=== PATIENT | male | born 1955 | race Caucasian/White ===

== ENCOUNTER 2020-07-14 15:21 | Inpatient (IN) | payer MEDICARE, BC ==
[~2020-07-14] VITALS: Ht 170.2 cm; Wt 108.4 kg
[~2020-07-14 15:21] MED LIST: ADULT LOW DOSE81 MG PO; AMITIZA24 MCG PO; ASPIR 8181 MG PO; AUGMENTIN 500-500 MG PO; AUGMENTIN 875-1 EACH PO; BETADINE946 ML TOP; CALCIUM 600 +1 EA10 PO; CALCIUM ACETAT667 M1 PO; CARAFATE1 GM PO; CLOPIDOGREL75 MG PO; COREG 3.125M3.125 MG PO; DORZOLAMIDE-TIM10 ML EYELF; ELAVIL 50 MG TA50 MG PO; FERROUS SULFAT325 MG PO; HYDROCODON-ACE1 EAC2 PO; LEVEMIR FL100 UNIT/1 SQ; LEVEMIR100 UNIT/1 SQ; LIPITOR TAB 2020 MG PO; LORTAB 7.5-3251 EACH PO; LYRICA150 MG PO; LYRICA75 MG PO; MAALOX PLUS 3030 ML PO; MAPAP325 MG PO; NORVASC 5 MG TAB5 MG PO; NOVOLOG 10100 UNITS/ INJ; NOVOLOG FL100 UNIT/1 SQ; OMNICEF 300 MG300 MG PO; PANTOPRAZOLE SO40 MG PO; PHOSLO667 MG PO; PREDNISONE 10 M10 MG PO; PROBIOTIC1 EAC3 PO; PROZAC20 MG PO; REGLAN5 MG PO; SANTYL OINT 3030 GM TP; TUMS DUAL ACTI1 EACH PO; VITAMIN D50000 UNIT PO; ZOFRAN ODT 4 MG4 MG PO; ZOLOFT50 MG PO
[2020-07-14 16:37] LABS: HEMOGLOBIN 8.5 gm/dl (14.0-17.5); RED BLOOD COUNT 2.76 M/UL (4.20-5.50); WHITE BLOOD COUNT 9.5 K/UL (4.5-11.0)
[2020-07-14] MEDS ORDERED: LYRICA 75 MG CA75 MG PO (18:28)
[2020-07-15 03:50] LABS: HEMOGLOBIN 8.4 gm/dl (14.0-17.5); RED BLOOD COUNT 2.75 M/UL (4.20-5.50); WHITE BLOOD COUNT 10.4 K/UL (4.5-11.0)
[2020-07-16 04:12] LABS: HEMOGLOBIN 8.1 gm/dl (14.0-17.5); RED BLOOD COUNT 2.66 M/UL (4.20-5.50); WHITE BLOOD COUNT 9.3 K/UL (4.5-11.0)
[2020-07-16 10:13] LABS: HBSAG SCREEN Negative (Negative); HEP A AB, IGM Negative (Negative); HEP B CORE AB, IGM Negative (Negative); HEP C VIRUS AB <0.1 (0.0-0.9)
--- NOTE | 2020-07-16 22:08 | NUR ---
PT ARRIVED BACK FROM SURGERY AT 1950. PT STABLE WITH NO COMPLICATIONS NOTED. SHIFT ASSESSMENT PERFORMED UPON RE-ENTRY TO FLOOR AND CHARTED SO. WCTM
[2020-07-17 03:15] LABS: HEMOGLOBIN 8.1 gm/dl (14.0-17.5); RED BLOOD COUNT 2.66 M/UL (4.20-5.50); WHITE BLOOD COUNT 7.4 K/UL (4.5-11.0)
[2020-07-18 05:35] LABS: HEMOGLOBIN 7.8 gm/dl (14.0-17.5); RED BLOOD COUNT 2.59 M/UL (4.20-5.50); WHITE BLOOD COUNT 7.5 K/UL (4.5-11.0)
[2020-07-19 06:23] LABS: RED BLOOD COUNT 2.67 M/UL (4.20-5.50); WHITE BLOOD COUNT 6.8 K/UL (4.5-11.0)
[2020-07-19] MEDS ORDERED: ZYVOX600 MG PO (10:50)
[2020-07-19] MEDS ORDERED: PROBIOTIC & AC1 EACH PO (10:50)
[2020-07-20 03:11] LABS: HEMOGLOBIN 8.1 gm/dl (14.0-17.5); RED BLOOD COUNT 2.72 M/UL (4.20-5.50); WHITE BLOOD COUNT 6.7 K/UL (4.5-11.0)
[2020-07-20 03:32] LABS: BUN/CREATININE RATIO 5 (0-10)
[2020-07-21 02:46] LABS: HEMOGLOBIN 8.6 gm/dl (14.0-17.5); RED BLOOD COUNT 2.87 M/UL (4.20-5.50); WHITE BLOOD COUNT 10.7 K/UL (4.5-11.0)
--- NOTE | 2020-07-21 16:35 | NUR ---
DRSG CHANGE TO RIGHT FOOT WRITTEN ORDERS. REMOVED OLD DRESSING. CLEANED SUTURES WITH BETADINE. COVERED WITH NON ADHESIVE, 4X4'S, ABD PAD, KERLEX WRAP.
[2020-07-22 03:22] LABS: RED BLOOD COUNT 2.66 M/UL (4.20-5.50)
[2020-07-22 03:27] LABS: WHITE BLOOD COUNT 7.4 K/UL (4.5-11.0)
--- NOTE | 2020-07-22 18:57 | NUR ---
REPORT GIVEN TO BRIELLE WITH [facility].
== END 2020-07-22 16:30 | disposition home or self-care (01) | DRG 270 ==
LOC: ER1 15:21 → M/S 17:05 → CDU 17:05 → M/S 19:41 → PROG CARE 07-20 17:29
PROVIDERS: Emergency Medicine; Hospitalist; Internal Medicine Nephrology; Physician Assistant; Physician Assistant Medical; Podiatrist Foot & Ankle Surgery; Surgery; ADMIT Internal Medicine
PROC: 5A1D70Z Performance of Urinary Filtration, Intermittent, Less than 6 Hours Per Day (ICD-10-PCS; 2020-07-15)
PROC: 0SBM0ZZ Excision of Right Metatarsal-Phalangeal Joint, Open Approach (ICD-10-PCS; 2020-07-16)
PROC: 0QBN0ZZ Excision of Right Metatarsal, Open Approach (ICD-10-PCS; principal; 2020-07-16 18:36)
PROC: 0HRMXK3 Replacement of Right Foot Skin with Nonautologous Tissue Substitute, Full Thickness, External Approach (ICD-10-PCS; 2020-07-16 18:36)
PROC: 5A1D70Z Performance of Urinary Filtration, Intermittent, Less than 6 Hours Per Day (ICD-10-PCS; 2020-07-17)
PROC: 04CK3ZZ Extirpation of Matter from Right Femoral Artery, Percutaneous Approach (ICD-10-PCS; 2020-07-20)
PROC: 04CM3ZZ Extirpation of Matter from Right Popliteal Artery, Percutaneous Approach (ICD-10-PCS; 2020-07-20)
PROC: 047K3ZZ Dilation of Right Femoral Artery, Percutaneous Approach (ICD-10-PCS; 2020-07-20)
PROC: 047M3ZZ Dilation of Right Popliteal Artery, Percutaneous Approach (ICD-10-PCS; 2020-07-20)
PROC: 047P3ZZ Dilation of Right Anterior Tibial Artery, Percutaneous Approach (ICD-10-PCS; 2020-07-20)
PROC: B41FYZZ Fluoroscopy of Right Lower Extremity Arteries using Other Contrast (ICD-10-PCS; 2020-07-20)
PROC: 5A1D70Z Performance of Urinary Filtration, Intermittent, Less than 6 Hours Per Day (ICD-10-PCS; 2020-07-20)
DX: E11.52 Type 2 diabetes mellitus with diabetic peripheral angiopathy with gangrene (principal); N18.6 End stage renal disease; M86.171 Other acute osteomyelitis, right ankle and foot; I70.261 Atherosclerosis of native arteries of extremities with gangrene, right leg; I12.0 Hypertensive chronic kidney disease with stage 5 chronic kidney disease or end stage renal disease; L97.814 Non-pressure chronic ulcer of other part of right lower leg with necrosis of bone; I70.92 Chronic total occlusion of artery of the extremities; L03.115 Cellulitis of right lower limb; S98.111A Complete traumatic amputation of right great toe, initial encounter; E11.69 Type 2 diabetes mellitus with other specified complication; E11.42 Type 2 diabetes mellitus with diabetic polyneuropathy; E11.65 Type 2 diabetes mellitus with hyperglycemia; E11.39 Type 2 diabetes mellitus with other diabetic ophthalmic complication; E11.22 Type 2 diabetes mellitus with diabetic chronic kidney disease; L97.519 Non-pressure chronic ulcer of other part of right foot with unspecified severity; H40.9 Unspecified glaucoma; H42 Glaucoma in diseases classified elsewhere; Z79.4 Long term (current) use of insulin; Z99.2 Dependence on renal dialysis; R19.7 Diarrhea, unspecified; E11.51 Type 2 diabetes mellitus with diabetic peripheral angiopathy without gangrene; I70.238 Atherosclerosis of native arteries of right leg with ulceration of other part of lower leg; E78.5 Hyperlipidemia, unspecified; I05.0 Rheumatic mitral stenosis; Z20.822 Contact with and (suspected) exposure to COVID-19; E66.01 Morbid (severe) obesity due to excess calories; Z90.49 Acquired absence of other specified parts of digestive tract; Z98.49 Cataract extraction status, unspecified eye; Z96.1 Presence of intraocular lens; F17.210 Nicotine dependence, cigarettes, uncomplicated; Z89.612 Acquired absence of left leg above knee; W54.0XXA Bitten by dog, initial encounter; Y93.89 Activity, other specified; Y92.099 Unspecified place in other non-institutional residence as the place of occurrence of the external cause; S98.131A Complete traumatic amputation of one right lesser toe, initial encounter; D63.1 Anemia in chronic kidney disease; E87.5 Hyperkalemia; J44.9 Chronic obstructive pulmonary disease, unspecified
CPT/HCPCS: ECHO; 36415; 71045; 73630; 76000; 80048; 80053; 80069; 80074; 82728; 82962; 83540; 83550; 83735; 85025; 85027; 86850; 86900; 86901; 87635; 90471; 90715; 90935; 90937; 93005; 93306; 93926; 96365; 96372; 96375; 99285; C1714; C1725; C1769; C1887; C2623; J0360; J0690; J1580; J1644; J2001; J2250; J2543; J2704; J2710; J2720; J2795; J3010; J3370; J7030; J7040; J7050; J7120; Q4133; Q9962; U0002

== ENCOUNTER 2020-07-28 20:10 | Emergency (ER) | payer MEDICARE, BC ==
[~2020-07-28 20:10] MED LIST changes: +LYRICA 75 MG CA75 MG PO; +PROBIOTIC & AC1 EACH PO; +ZYVOX600 MG PO
[2020-07-28 22:19] LABS: RED BLOOD COUNT 1.54 M/UL (4.20-5.50); WHITE BLOOD COUNT 6.4 K/UL (4.5-11.0)
[2020-07-28 22:22] LABS: HEMOGLOBIN 4.5 gm/dl (14.0-17.5)
== END 2020-07-29 00:39 | disposition short-term general hospital (02) ==
LOC: ER1 20:10
PROVIDERS: Physician Assistant
DX: K92.1 Melena (principal); R57.1 Hypovolemic shock; D64.9 Anemia, unspecified; I96 Gangrene, not elsewhere classified; I44.0 Atrioventricular block, first degree; N18.6 End stage renal disease; F17.210 Nicotine dependence, cigarettes, uncomplicated; Z89.411 Acquired absence of right great toe; Z89.421 Acquired absence of other right toe(s); Z99.2 Dependence on renal dialysis; Z98.890 Other specified postprocedural states
CPT/HCPCS: 36430; 36556; 71045; 80053; 82140; 82270; 82550; 82553; 83605; 83874; 84484; 85025; 85610; 86850; 86900; 86901; 86920; 93005; 96374; 99285; C1751; P9016

== ENCOUNTER 2020-09-20 17:24 | Inpatient (IN) | payer MEDICARE, BC ==
[~2020-09-20] VITALS: Ht 170.2 cm; Wt 106.6 kg
[2020-09-20 19:56] LABS: HEMOGLOBIN 9.3 gm/dl (14.0-17.5); RED BLOOD COUNT 3.22 M/UL (4.20-5.50); WHITE BLOOD COUNT 15.3 K/UL (4.5-11.0)
[2020-09-20] MEDS ORDERED: PRILOSEC OTC20 MG PO (20:04)
[2020-09-21 10:28] LABS: RED BLOOD COUNT 3.07 M/UL (4.20-5.50); WHITE BLOOD COUNT 17.9 K/UL (4.5-11.0)
[2020-09-21 10:50] LABS: BUN/CREATININE RATIO 5 (0-10)
--- NOTE | 2020-09-21 11:35 | NUR ---
0920 - Telebooth called Nicole Suh RN and said that pt was SB on the monitor. He notified primary RN Domi Borja RN. Upon entering room, pt was found with agonal respirations and unresponsive to verbal or painful stimuli. Staff assist button pushed. Pt was noted with no respirations. Chest compressions started @ 0920. See Code Record for further details. 0954 - Pt transported to ICU via bed, intubated with RT assist. 1005 - Spoke with pt's son, Duncan. He was updated on pt's status and stated that he was on his way and his mother Yoon was on her way from [place].
[2020-09-22 05:16] LABS: RED BLOOD COUNT 3.47 M/UL (4.20-5.50); WHITE BLOOD COUNT 22.9 K/UL (4.5-11.0)
[2020-09-23 04:57] LABS: HEMOGLOBIN 9.8 gm/dl (14.0-17.5); RED BLOOD COUNT 3.48 M/UL (4.20-5.50); WHITE BLOOD COUNT 27.6 K/UL (4.5-11.0)
[2020-09-24 05:02] LABS: HEMOGLOBIN 8.9 gm/dl (14.0-17.5); RED BLOOD COUNT 3.21 M/UL (4.20-5.50)
[2020-09-24 05:10] LABS: WHITE BLOOD COUNT 16.6 K/UL (4.5-11.0)
[2020-09-25 05:35] LABS: HEMOGLOBIN 8.8 gm/dl (14.0-17.5); RED BLOOD COUNT 3.12 M/UL (4.20-5.50); WHITE BLOOD COUNT 17.8 K/UL (4.5-11.0)
[2020-09-26 04:49] LABS: HEMOGLOBIN 9.7 gm/dl (14.0-17.5)
[2020-09-26 04:54] LABS: RED BLOOD COUNT 3.47 M/UL (4.20-5.50); WHITE BLOOD COUNT 22.4 K/UL (4.5-11.0)
[2020-09-27 04:19] LABS: HEMOGLOBIN 9.7 gm/dl (14.0-17.5); RED BLOOD COUNT 3.49 M/UL (4.20-5.50)
[2020-09-27 04:54] LABS: WHITE BLOOD COUNT 30.9 K/UL (4.5-11.0)
[2020-09-28 07:50] LABS: HEMOGLOBIN 9.1 gm/dl (14.0-17.5); RED BLOOD COUNT 3.29 M/UL (4.20-5.50)
[2020-09-28 08:27] LABS: WHITE BLOOD COUNT 44.8 K/UL (4.5-11.0)
== END 2020-09-28 14:49 | disposition expired | DRG 853 ==
LOC: CDU 17:59 → MED SURG 4 17:59 → CCU 17:59 → MED SURG 4 18:10 → CCU 09-21 09:46
PROVIDERS: Internal Medicine; Internal Medicine Nephrology; Internal Medicine Pulmonary Disease; ADMIT Internal Medicine Infectious Disease
PROC: 5A12012 Performance of Cardiac Output, Single, Manual (ICD-10-PCS; principal; 2020-09-21)
PROC: 0BH17EZ Insertion of Endotracheal Airway into Trachea, Via Natural or Artificial Opening (ICD-10-PCS; 2020-09-21)
PROC: 3E033XZ Introduction of Vasopressor into Peripheral Vein, Percutaneous Approach (ICD-10-PCS; 2020-09-21)
PROC: 5A1955Z Respiratory Ventilation, Greater than 96 Consecutive Hours (ICD-10-PCS; 2020-09-21)
PROC: 0Y6H0Z3 Detachment at Right Lower Leg, Low, Open Approach (ICD-10-PCS; 2020-09-23)
PROC: 5A1D70Z Performance of Urinary Filtration, Intermittent, Less than 6 Hours Per Day (ICD-10-PCS; 2020-09-23)
PROC: 4A10X4Z Monitoring of Central Nervous Electrical Activity, External Approach (ICD-10-PCS; 2020-09-24)
PROC: 06HY33Z Insertion of Infusion Device into Lower Vein, Percutaneous Approach (ICD-10-PCS; 2020-09-25)
DX: A41.9 Sepsis, unspecified organism (principal); L89.614 Pressure ulcer of right heel, stage 4; N18.6 End stage renal disease; J96.01 Acute respiratory failure with hypoxia; J69.0 Pneumonitis due to inhalation of food and vomit; R65.21 Severe sepsis with septic shock; E11.52 Type 2 diabetes mellitus with diabetic peripheral angiopathy with gangrene; I96 Gangrene, not elsewhere classified; I12.0 Hypertensive chronic kidney disease with stage 5 chronic kidney disease or end stage renal disease; E87.2 Acidosis; G93.1 Anoxic brain damage, not elsewhere classified; M86.8X7 Other osteomyelitis, ankle and foot; Z20.822 Contact with and (suspected) exposure to COVID-19; I46.9 Cardiac arrest, cause unspecified; Z66 Do not resuscitate; Z51.5 Encounter for palliative care; N40.0 Benign prostatic hyperplasia without lower urinary tract symptoms; F32.9 Major depressive disorder, single episode, unspecified; F41.9 Anxiety disorder, unspecified; E11.69 Type 2 diabetes mellitus with other specified complication; E88.09 Other disorders of plasma-protein metabolism, not elsewhere classified; E78.5 Hyperlipidemia, unspecified; K21.9 Gastro-esophageal reflux disease without esophagitis; E11.65 Type 2 diabetes mellitus with hyperglycemia; F17.210 Nicotine dependence, cigarettes, uncomplicated; D63.1 Anemia in chronic kidney disease; E66.9 Obesity, unspecified; Z68.34 Body mass index [BMI] 34.0-34.9, adult; Z99.2 Dependence on renal dialysis; Z82.49 Family history of ischemic heart disease and other diseases of the circulatory system; Z89.612 Acquired absence of left leg above knee; Z84.1 Family history of disorders of kidney and ureter; Z98.49 Cataract extraction status, unspecified eye; Z83.3 Family history of diabetes mellitus; Z82.0 Family history of epilepsy and other diseases of the nervous system; Z90.49 Acquired absence of other specified parts of digestive tract; Z98.890 Other specified postprocedural states; Z99.81 Dependence on supplemental oxygen; Z79.82 Long term (current) use of aspirin; Z79.02 Long term (current) use of antithrombotics/antiplatelets; Z79.4 Long term (current) use of insulin; Z79.899 Other long term (current) drug therapy
CPT/HCPCS: 31500; 36415; 36600; 70450; 71045; 80048; 80053; 80170; 80202; 82140; 82803; 82962; 83036; 83605; 83735; 84100; 84443; 85007; 85025; 85027; 86140; 86850; 86900; 86901; 86920; 87040; 87070; 87081; 87205; 90937; 92950; 93926; 94002; 94003; 94640; 94664; 94760; 95816; 95819; A6212; J0171; J0461; J1265; J1335; J1580; J1644; J2250; J2270; J2405; J2543; J2704; J3010; J3370; J7040; J7070; J7120; P9047; U0002